=== PATIENT | male | born 1990 | race Hispanic/Latino ===

== ENCOUNTER 2023-09-28 18:23 | Emergency (ER) | payer MEDICAID, SELFPAY ==
[2023-09-28 18:23] VITALS: BP 158/79; PULSE 120; RESP 18; TEMP 36.1; O2SAT 95; BMI 29.9
--- NOTE | 2023-09-28 19:06 | EDS_ITS ---
HPI History of Present Illness Chief Complaint: General Illness Detail of Chief Complaint: Cough fever and sweats. Informant: patient and spouse/S.O. Onset/Context/Timing Onset: Days Context: Gradual Onset Timing: Continuous Maximum Severity: Mild Narrative Narrative: 33-year-old healthy male no seen past medical history other than asthma. States he is out of inhaler. His ex and children also no symptoms. He has been sick, for a week. Nausea vomiting. Cough with fever or night sweats. No diarrhea. No dysuria. No rash. Prior similar symptoms: No Recent Illness/Hospitalization: No PFSH PFSH Medical History no medical history no medical history Home Medications ?Medication ?Instructions ?Recorded ?Last Taken ?Type albuterol sulfate 90 mcg/actuation 1 - 2 puff inhalation Q4H PRN PRN 09/28/23 Unknown Rx aerosol inhaler (Ventolin HFA) Wheezing 7 days #1 inh ondansetron 4 mg disintegrating 4 mg PO Q6H PRN nausea and 09/28/23 Unknown Rx tablet vomiting #7 tabs pantoprazole 20 mg tablet,delayed 20 mg PO DAILY #30 tabs 09/28/23 Unknown Rx release (Protonix) Allergy/AdvReac Type Severity Reaction Status Date / Time No Known Allergies Allergy Verified 09/28/23 18:25 Social History Smoking Status: Current some day smoker tobacco type: cigarettes ROS ROS ED ROS Narrative Cough, fever and sweats. Review of Systems ROS Unobtainable: Denies due to encephalopathy Constitutional Constitutional ED: Reports fever(s) Eyes Eyes: Denies burning ENT ENT ED: Denies dental pain Cardiovascular Cardiovascular: Denies arrhythmia on telemetry Respiratory/Chest Respiratory/Chest: Reports cough Gastrointestinal Gastrointestinal: Denies change in stool character Genitourinary Genitourinary ED: Denies change in urinary stream Musculoskeletal Musculoskeletal: Denies difficulty walking Integumentary Denies lesions Neurologic Neurologic: Reports none Psychiatric Psychiatric: Reports none Endocrine Endocrinology: Reports none Hematologic/Lymphatic Hematologic/Lymphatic: Reports none Allergic/Immunologic Allergic/Immunologic ED: Reports none EXAM Physical Exam Narrative Exam Narrative: Well-appearing 33-year-old male. Vital signs stable he is tachycardic. Does not look septic or toxic. H EENT exam mild dry mucous members. TMs normal. Neck nontender lymphadenopathy. No meningismus. Lungs dry cough. No rales, rhonchi or wheezing. Equal symmetrical. Heart tachycardic 110 no murmur. Chest wall and ribs nontender. Abdomen soft nontender. Moving all 4 extremities. Calves nontender without edema or cords. Back nontender. Neurologically is awake alert no focal motor deficits. Skin no rashes. No petechiae or purpura. Const Vital Signs: 09/28/23 18:23 09/28/23 20:23 Temperature 96.9 F L Temperature Source Temporal Pulse Rate 120 H 84 Respiratory Rate 18 16 Blood Pressure 158/79 H 143/83 H Blood Pressure Mean 105 103 Pulse Ox 95 98 Oxygen Delivery Method Room Air Room Air Positive well nourished, well developed, alert, oriented x3, no apparent distress, average body habitus, no limitations and healthy appearing; Negative for obese, cachectic, contractures or unkempt General Appearance ED: active, cooperative, comfortable, well kempt and well developed; Negative for unkempt, cachectic or contractures Orientation / Consciousness: awake, oriented to person, oriented to place and oriented to time Exam Limitations: no limitations Nutritional Appearance: Negative for cachectic or obese HEENT Reports normocephalic, head/scalp atraumatic, TM's clear and dry mucous membranes normocephalic Face and Sinus: normal facial exam Nose: external nose normal External Ear: external ears normal Tympanic Membrane ED: Yes TM's clear Mouth ED: Yes dry mucous membranes Mouth: dry mucous membranes Throat: posterior oropharynx normal Eyes PERRL, EOMs intact bilaterally, conjunctivae normal, no scleral icterus and no papilledema General Eye ED: Yes normal appearance of both eyes Neck full ROM, No nuchal rigidity, no lymphadenopathy, supple, no meningeal signs, no JVD, thyroid normal and No nodes General: normal visual inspection Thyroid: thyroid normal Lymph Lymphatic: no lymphadenopathy noted and no lymphedema noted Chest Wall inspection of chest normal and palpation of chest normal Resp normal respiratory effort, normal air movement, no retractions, no use of acc essory muscles and clear to auscultation bilaterally Effort and Inspection: able to speak in complete sentences Auscultation: clear to auscultation bilaterally Cardio regular rhythm, S1 normal heart sound, S2 normal heart sound, no murmurs, no rub, no gallops, no clicks, no JVD and peripheral pulses 2+ throughout; Negative for regular rate or diaphoretic Rate: tachycardic Rhythm: regular rhythm Heart Sounds: S1 normal and S2 normal GI normal to inspection, nondistended, normoactive bowel sounds, soft to palpation, non-tender, non-distended, no masses and no bruits Palpation: soft; Negative for firm, tender or rebound tenderness present Back/Spine no CVA tenderness, thoracic and lumbar spine normal to inspection and no thoracic nor lumbar tenderness General Back: Negative for CVA tenderness Extremity normal to inspection, full ROM, normal capillary refill, no joint enlargement, no clubbing, cyanosis or edema, no calf tenderness and no pedal edema General Extremety ED: Yes normal exam except as noted General Extremity: normal exam except as noted Neuro oriented x3, CN's II-XII intact bilaterally, moves all extremities and no focal motor deficits Sensorium / Orientation: awake, alert, oriented to person, oriented to place and oriented to time; Negative for orientation impaired, confused, lethargic or somnolent Speech: speech normal Psych mental status grossly normal, thought process normal, cooperative, affect normal, speech normal and activity/motor behavior normal Appearance: grossly normal; Negative for unkempt Attitude: calm, engaged, No paranoid, No withdrawn and No bizarre Activity / Motor Behavior: appropriate eye contact Speech: normal speech Mood & Affect: euthymic mood Thought Process: normal thought process Skin no rashes or lesions noted, no wounds, no jaundice, no petechiae and no mottling General Skin Exam: no breakdown Lesions: no lesions Rashes: no rashes Trauma: no lacerations or abrasions MDM MDM MDM Narrative Medical decision making narrative: 33-year-old healthy male sounds like viral URI. Reportedly having nausea and vomiting for days with decreased oral intake. Will treat with IV fluids. Screening labs, chest x-ray to rule out pneumonia. And viral studies. Zofran for nausea. Repeat exam at 9:04 PM patient doing well. Abdomen benign. Able to drink ice water and hold it down. I went over test results both he and his ex- is here with him. They are comfortable with the plan. To be discharged with a prescription for a albuterol inhaler because he is out. Zofran for nausea. Protonix for his reflux. He will also be given a primary care physician follow- up with. Lab Data Attestation: I reviewed the patient's lab results. Lab results narrative: CBC normal. White count of 6. H&H 15 and 42. Platelets 197. Electrolytes show sodium 131. Gap of 8. Normal BUN is 16 and creatinine 1.1. Glucose 103. Negative viral studies. Negative chest x-ray. Labs: Laboratory Results - last 24 hr 09/28/23 18:40 WBC 6.5 RBC 4.99 Hgb 15.0 Hct 42.4 MCV 85.0 MCH 30.1 MCHC 35.4 RDW Std Deviation 36.9 RDW Coeff of Meredith 12.0 Plt Count 197 MPV 10.5 Immature Gran % (Auto) 0.900 Neut % (Auto) 82.9 H Lymph % (Auto) 10.8 L [place] % (Auto) 4.9 Eos % (Auto) 0.0 Baso % (Auto) 0.5 Absolute Neuts (auto) 5.4 Absolute Lymphs (auto) 0.70 L Nucleated RBC % 0 Sodium 131 L Potassium 4.0 Chloride 94 L Carbon Dioxide 29.0 Anion Gap 8 BUN 16 Creatinine 1.19 Estim Creat Clear Calc 93.71 Est GFR (MDRD) Af Amer 91 Est GFR (MDRD) Non-Af 75 BUN/Creatinine Ratio 13.4 Glucose 103 Calcium 9.3 Radiography Chest X-Ray - ED: 1 View, Read by ED Physician, Read by Radiologist, Mediastinum, Bony Structures and No Acute Disease Diagnostic Testing: Clinical Impression(s) from Imaging Studies Chest X-Ray 09/28/23 19:18 IMPRESSION: Medial left lower lung atelectasis. Radiographic follow-up recommended to ensure resolution. CT with IV contrast could exclude obstructing mass or endobronchial debris as clinically indicated. Electronically Signed: Lars Jain MD at 19:49 EDT , Chest x-ray, portable, single view shows no acute abnormality. Radiologist is reading possible left lower lung atelectasis. I do not see any signs of pneumonia. I do not think needs any further imaging. Discharge Plan Triage Chief Complaint: General Illness ED Provider: Fausto Holt Dx/Rx/DC Orders Clinical Impression: Viral syndrome, Vomiting, History of asthma Instructions: ED Viral Syndrome (Adult), ED Vomiting (Adult) Prescriptions: New ondansetron 4 mg tablet,disintegrating 4 mg PO Q6H PRN (Reason: nausea and vomiting) Qty: 7 0RF albuterol sulfate [Ventolin HFA] 90 mcg/actuation HFA aerosol inhaler 1 - 2 puff inhalation Q4H PRN PRN (Reason: Wheezing) 7 Days Qty: 1 1RF Rx Instructions: 1 to 2 puffs every 2-4 hours as needed for wheezing. pantoprazole [Protonix] 20 mg tablet,delayed release (DR/EC) 20 mg PO DAILY Qty: 30 0RF Primary Care Provider: Care Physician,No Primary Referrals: India Iverson MD [Med Staff - [employer]] - As Needed Care Physician,No Primary [Primary Care Provider] - Activity Restrictions/Additional Instructions: Plenty of fluids and rest. Increase diet slowly as tolerated. Zofran as needed for nausea. Your inhaler 2 puffs every 2-4 hours as needed for your asthma or wheezing. Protonix for reflux. 1 pill/day. Follow-up with a local primary care physician as needed. Return if worse. Print Language: Kazakh Disposition Disposition: Home, Self Care
[2023-09-28] MEDS: Ondansetron 4 MG/2 ML Vial IV (19:15)
[2023-09-28 19:16] LABS: Absolute Neutrophil Count 5.4 X10^3/uL (2.0-7.7); Basophil# 0.03 X10^3/uL; Basophil% 0.5 % (0-1); Hematocrit 42.4 % (40-54); Lymphocyte % 10.8 % (19-41); Mean Corp Hgb Conc 35.4 g/dL (32-36); Mean Corpuscular Hgb 30.1 pg (27.0-32.0); Mean Platelet Vol. 10.5 fl (6.2-12.0); Monocyte# 0.32 X10^3/uL; Monocyte% 4.9 % (0-10); NRBC Flagged by Analyzer 0 % (0-5); Neutrophil # 5.38 X10^3/uL (2.7-7.7); Neutrophil % 82.9 % (47-70); Platelet Count 197 K/mm3 (150-450); RBC Distribution Width SD 36.9 fl (35.1-43.9); Red Blood Count 4.99 M/mm3 (4.6-6.2); White Blood Count 6.5 K/mm3 (4.4-11.0)
[2023-09-28] MEDS: 0.9% Normal Saline (1000mL) 1,000 ML 1000 ML IV (19:16)
--- NOTE | 2023-09-28 19:18 | RAD_ITS ---
INDICATION: cough EXAMINATION/TECHNIQUE: X-RAY - XR Chest 1 View COMPARISON: None. FINDINGS: LINES/DEVICES: None. LUNGS: Atelectasis in the medial left lower lung with tenting of the hemidiaphragm. No consolidation, florid edema or effusion. No pneumothorax. MEDIASTINUM AND CARDIOVASCULAR STRUCTURES: Cardiac silhouette not enlarged. BONES AND SOFT TISSUES: Unremarkable. RAD/Chest 1 View (Portable) IMPRESSION: Medial left lower lung atelectasis. Radiographic follow-up recommended to ensure resolution. CT with IV contrast could exclude obstructing mass or endobronchial debris as clinically indicated. Electronically Signed: Lars Jain MD at 19:49 EDT ,
[2023-09-28 20:08] LABS: Anion Gap 8 (5-15); BUN 16 mg/dL (7-18); BUN/Creat Ratio 13.4 RATIO (10-20); Calcium,Total 9.3 mg/dL (8.5-10.1); Chloride 94 mmol/L (98-107); Creatinine, Serum 1.19 mg/dL (0.70-1.30); EST Glomerular Filtration Rate 75 mL/min (>60); Est Glom Filt Rate - Afr Amer 91 mL/min (>60); Estimated Creatinine Clearance 93.71 ml/min; Glucose 103 mg/dL (74-106); Sodium Level 131 mmol/L (136-145)
[2023-09-28 20:23] VITALS: BP 143/83; PULSE 84; RESP 16; O2SAT 98
[2023-09-28 21:19] VITALS: BP 134/85; PULSE 84; RESP 16; TEMP 36.7; O2SAT 99
== END 2023-09-28 21:20 | disposition home or self-care (01) ==
PROVIDERS: Emergency Provider Emergency Medicine; Visit Provider Emergency Medicine
DX: B34.9 Viral infection, unspecified (principal); R11.2 Nausea with vomiting, unspecified; F17.210 Nicotine dependence, cigarettes, uncomplicated; J45.909 Unspecified asthma, uncomplicated; R05.9 Cough, unspecified
CPT/HCPCS: 71045; 80048; 85025; 87631; 99283; J7030; J2405

== ENCOUNTER 2025-02-05 22:02 | Emergency (ER) | payer SELFPAY ==
[2025-02-05 22:02] VITALS: BP 132/86; PULSE 92; RESP 18; TEMP 36.9; O2SAT 99; BMI 28.8
--- NOTE | 2025-02-05 23:50 | RAD_ITS ---
PROCEDURE: RIGHT WRIST MIN 3 VIEWS 02/05/2025 REASON FOR EXAM: INJURY TECHNIQUE: Procedure Code: RADWR Modality: DX Procedure: WRIST MIN 3 VIEWS Laterality: Right COMPARISON: None. FINDINGS: No acute fracture or dislocation. Alignment is anatomic. Preserved joint spaces. No aggressive osseous lesion. No marked soft tissue swelling or radiopaque foreign body. RAD/Wrist min 3 Views IMPRESSION: No acute fracture or dislocation. Reading Location: [id number]
[2025-02-05] MEDS: Lidocaine 2% /Epi 1:100 (20ml) 20 ML VIAL INFILT (23:53)
--- NOTE | 2025-02-06 01:49 | EDS_ITS ---
HPI History of Present Illness Chief Complaint: Bite Informant: patient Narrative Narrative: Patient is a 34-year-old male with no significant past medical history. He is left-hand dominant. He reports that a few hours prior to arrival he was bitten in the right hand/wrist by an unknown dog. He denies any other injuries. He denies any numbness tingling or weakness. He is unsure of his tetanus status. He reports that based on the bite and laceration that a cause to his hand/wrist he has concern he may need sutures and therefore comes in for evaluation. PFSH PFS Medical History no medical history Home Medications ?Medication ?Instructions ?Recorded ?Last Taken ?Type albuterol sulfate 90 mcg/actuation 1 - 2 puff inhalati on Q4H PRN PRN 09/28/23 Unknown Rx aerosol inhaler (Ventolin HFA) Wheezing 7 days #1 inh amoxicillin 875 mg-potassium 1 tab PO BID 10 days #20 tabs 02/06/25 Unknown Rx clavulanate 125 mg tablet Allergy/AdvReac Type Severity Reaction Status Date / Time No Known Allergies Allergy Verified 02/05/25 22:02 Surgical History no surgical history Social History Smoking Status: Current some day smoker tobacco type: cigarettes ROS ROS ED Constitutional Constitutional ED: Denies chills or fever(s) ENT ENT ED: Denies sore throat Cardiovascular Cardiovascular: Denies chest pain Respiratory/Chest Respiratory/Chest: Denies cough or dyspnea Gastrointestinal Gastrointestinal: Denies abdominal pain, diarrhea, nausea or vomiting Musculoskeletal Musculoskeletal: Reports other Details: Positive right wrist/hand pain Integumentary Reports other Details: Positive right wrist laceration/bite ; Denies rash Neurologic Neurologic: Denies headache(s), paresthesias or weakness Hematologic/Lymphatic Hematologic/Lymphatic: Denies easy bleeding or easy bruising EXAM Physical Exam Const Vital Signs: 02/05/25 22:02 Temperature 98.4 F Temperature Source Oral Pulse Rate 92 Respiratory Rate 18 Blood Pressure 132/86 H Blood Pressure Mean 101 Pulse Ox 99 Oxygen Delivery Method Room Air Positive well nourished and well developed General Appearance ED: well developed HEENT HEENT Narrative: Normocephalic atraumatic Eyes PERRL and EOMs intact bilaterally Neck supple Resp normal respiratory effort and clear to auscultation bilaterally Cardio regular rate and regular rhythm Extremity Extremity Narrative: Right upper extremity is neurovascularly intact; AIN/PIN are intact and normal Patient has a 2.5 cm subcutaneous layer deep linear laceration along the volar portion of the right wrist. There is minimal ooze of blood and no retained foreign body. No ligamentous or tendon damage noted There is also a small puncture wound to the palmar aspect of the right hand. This also has minimal ooze of blood and no retained foreign body Remainder of the exam is normal Neuro oriented x3, CN's II-XII intact bilaterally and no sensory deficits noted Sensorium / Orientation: alert Motor Exam: strength 5/5 throughout Psych mental status grossly normal Skin Skin Narrative: Dog bite/laceration to the right hand as documented above MDM MDM MDM Narrative Medical decision making narrative: Patient arrived to ER with stable vitals. He had direct trauma to his right hand/wrist by report of dog bite. With concern for underlying fracture or retained tooth and x-ray was obtained. X-ray revealed no signs of retained foreign body or fracture. As the patient did not know his tetanus status this was updated. He reported that the dog was unknown and therefore we discussed rabies prophylaxis. He states he has low concern for this and does not want the immunoglobulin or vaccination. He was started on Augmentin with concern for secondary infection from the dog bite. As the laceration across the wrist was gaping I did feel it would require closure with loose approximation sutures and therefore this was performed as documented below. However at this time he does not have fracture or dislocation retained foreign body ligamentous or tendon laceration or signs of neurovascular compromise and therefore there is no need for further intervention in the ER and is otherwise safe for discharge. The right hand/wrist was cleaned with chlorhexidine. The area was anesthetized using 6 mL of 2% lidocaine with epinephrine and local fashion. The wound was then copiously irrigated with normal saline. Three 4-0 Ethilon sutures were placed in simple fashion bring the wound together with loose approximation. Patient tolerated procedure well without complication. History & Record Review Discussion w/independent historian: Patient Radiography Diagnostic Testing: Clinical Impression(s) from Imaging Studies Wrist X-Ray 02/05/25 23:50 IMPRESSION: No acute fracture or dislocation. Reading Location: [id number] Right wrist x-ray as interpreted by the emergency medicine physician reveals no acute fracture dislocation or retained foreign body Discharge Plan Triage Chief Complaint: Bite ED Provider: Jonah Macias Dx/Rx/DC Orders Clinical Impression: Open wound of right wrist due to dog bite Instructions: ED Dog Bite, ED Laceration, All Closures Prescriptions: New amoxicillin-pot clavulanate 875-125 mg tablet 1 tab PO BID 10 Days Qty: 20 0RF No Action albuterol sulfate [Ventolin HFA] 90 mcg/actuation HFA aerosol inhaler 1 - 2 puff inhalation Q4H PRN PRN (Reason: Wheezing) 7 Days Qty: 1 1RF Rx Instructions: 1 to 2 puffs every 2-4 hours as needed for wheezing. Stand Alone Forms: ED Work / School Excuse Primary Care Provider: Care Physician,No Primary Referrals: Juan Vu MD [Med Staff - Active Staff, Family Practice] Care Physician,No Primary [Primary Care Provider, Medical] Activity Restrictions/Additional Instructions: Please wash the area with soap and water and take your antibiotic as directed to prevent secondary infection. Return to the ER or see your family doctor in 7 to 10 days for suture removal. If you develop a fever increase around the redness from the cut or streaking please return for repeat evaluation. Print Language: Kazakh Disposition Disposition: Home, Self Care Discharge Date/Time: 02/06/25 01:58
[2025-02-06 01:57] VITALS: BP 130/70; PULSE 85; RESP 18; TEMP 36.9; O2SAT 99
== END 2025-02-06 01:58 | disposition home or self-care (01) ==
PROVIDERS: Emergency Provider Emergency Medicine; Visit Provider Emergency Medicine
DX: S61.551A Open bite of right wrist, initial encounter (principal); W54.0XXA Bitten by dog, initial encounter; S61.519A Laceration without foreign body of unspecified wrist, initial encounter; Z23 Encounter for immunization; F17.210 Nicotine dependence, cigarettes, uncomplicated
CPT/HCPCS: 12001; 73110; 90471; 90715; 99283